=== PATIENT | female | born 1960 | race Caucasian/White ===

== ENCOUNTER → 2024-04-04 06:20 | Day surgery (SDC) | payer OTHER, SELFPAY ==
[2024-04-04 07:20] LABS: Glucose - Point of Care 153 mg/dl (70-99)
== END ==
LOC: GI 06:20
PROVIDERS: ATTENDING PHYSICIAN Internal Medicine
DX: K63.89 Other specified diseases of intestine (principal); K51.40 Inflammatory polyps of colon without complications; K52.9 Noninfective gastroenteritis and colitis, unspecified
CPT/HCPCS: 45380; 88305; 82962